=== PATIENT | female | born 1995 | race Caucasian/White ===

== ENCOUNTER 2022-07-22 11:30 | Inpatient (IN) | payer SELFPAY ==
[2022-07-22] MEDS ORDERED: Nalbuphine HCl 10 MG/ 1ML Amp IVPUSH PRN (12:13)
[2022-07-22] MEDS ORDERED: Sodium Chloride 0.9% 10 ML Syringe FLUSH PRN (12:13)
[2022-07-22] MEDS ORDERED: Ondansetron 4 MG/2 ML SDV IVPUSH PRN (12:13)
[2022-07-22] MEDS ORDERED: Lactated Ringers 1,000 ML IV SCH (12:15)
[2022-07-22] MEDS ORDERED: Oxytocin/Lactated Ringers 10 UNIT/1,000 ML BAG IV SCH ×2 (12:15→13:03)
[2022-07-22] MEDS ORDERED: Oxytocin/Lactated Ringers 10 UNIT/1,000 ML BAG IV ONE (12:15)
[2022-07-22] MEDS ORDERED: Hydrocortisone Acetate 25 MG Supp RECTAL PRN (13:03)
[2022-07-22] MEDS ORDERED: Acetaminophen 325 MG Tab PO PRN (13:03)
[2022-07-22] MEDS ORDERED: Ibuprofen 600 MG Tab PO PRN (13:03)
[2022-07-22] MEDS ORDERED: Docusate Sodium 100 MG Cap PO PRN (13:03)
[2022-07-22] MEDS ORDERED: Witch Hazel Medicated Pads 40/Jar TOP PRN (13:03)
[2022-07-22] MEDS ORDERED: Benzocaine/Menthol 20%-0.5% Spray 78 GM Cannister TOP PRN (13:03)
[2022-07-22] MEDS ORDERED: Sodium Chloride 0.9% 10 ML Syringe FLUSH SCH (21:00)
[2022-07-22] MEDS ORDERED: Magnesium Hydroxide 400 MG/5 ML Susp 30 ML Cup PO PRN (21:00)
[2022-07-23] MEDS: Prenatal Multivitamin with Calcium/Folic Acid/Iron Tab PO SCH (19:03)
[2022-07-24] MEDS: Prenatal Multivitamin with Calcium/Folic Acid/Iron Tab PO SCH (09:13)
== END 2022-07-24 13:30 | disposition home or self-care (01) | DRG 807 ==
LOC: JD.OBCHECK 11:30 → JD.OB 11:35 → JD.OBCHECK 12:24 → JD.OB 12:57
PROVIDERS: ADMIT Obstetrics & Gynecology; ATTEND Obstetrics & Gynecology
PROC: 10E0XZZ Delivery of Products of Conception, External Approach (ICD-10-PCS; principal; 2022-07-22)
PROC: 10907ZC Drainage of Amniotic Fluid, Therapeutic from Products of Conception, Via Natural or Artificial Opening (ICD-10-PCS; 2022-07-22)
DX: O99.824 Streptococcus B carrier state complicating childbirth (principal); Z37.0 Single live birth; O69.1XX0 Labor and delivery complicated by cord around neck, with compression, not applicable or unspecified; Z3A.39 39 weeks gestation of pregnancy; O70.0 First degree perineal laceration during delivery; Z86.16 Personal history of COVID-19
CPT/HCPCS: 36415; 59025; 59409; 85025; 86592; 86900; 86901; 87653; A9270-GY; J2590